=== PATIENT | male | born 1940 | race Caucasian/White ===

== ENCOUNTER → 2017-07-13 10:17 | Outpatient (CLI) | payer MEDICARE, SELFPAY ==
[2017-07-13 13:13] LABS: Basophils % 0.2 % (0.1-2.0); Eosinophils % 0.2 % (0.1-12.0); Hematocrit 26.4 % (42.0-52.0); Lymphocytes # 0.9 K/mm3 (0.7-4.5); Lymphocytes % 9.1 K/mm3 (10-50); Mean Corpuscular HGB Conc 24.7 g/dL (31.8-35.4); Mean Corpuscular Hemoglobin 16.6 pg (27.0-31.2); Mean Corpuscular Volume 67.2 fl (80-94); Mean Platelet Volume 6.9 fl (7.4-10.4); Monocytes # 0.5 K/mm3 (0.1-1.0); Monocytes % 4.7 % (1.7-9.3); Neutrophils # 8.8 K/mm3 (1.8-7.8); Neutrophils % 85.8 % (37.0-80.0); Platelet Count 712 K/mm3 (142-424); Red Blood Count 3.93 M/mm3 (4.60-6.20); Red Cell Distribution Width 21.1 % (11.5-17.5); White Blood Count 10.3 K/mm3 (4.8-10.8)
[2017-07-13 13:15] LABS: Hemoglobin 6.5 g/dL (14.1-18.0)
[2017-07-13 13:16] LABS: MANUAL DIFFERENTIAL MANUAL DIFFERENTIAL (MANUAL DIFF)
[2017-07-13 13:20] LABS: Alanine Aminotransferase 20 U/L (12-78); Albumin Level 1.8 gm/dL (3.4-5.0); Albumin/Globulin Ratio 0.5 (1.1-1.8); Alkaline Phosphatase 143 U/L (46-116); Anion Gap 12.8 mEq/L (5-15); Aspartate Amino Transferase 22 U/L (15-37); Bilirubin,Total 0.2 mg/dL (0.2-1.0); Blood Urea Nitrogen 8 mg/dL (7-18); Calcium 7.4 mg/dL (8.5-10.1); Carbon Dioxide 26 mmol/L (21.0-32.0); Chloride 99 mmol/L (98-107); Creatinine,Serum 0.58 mg/dL (0.70-1.30); Estimated Glomerular Filt Rate 135 ml/min (>60); GFR (African American) 164 ML/MIN (>60); Glucose 124 mg/dL (74-106); Potassium 3.8 mmoL/L (3.5-5.1); Sodium 134 mmol/L (136-145); Total Protein,Serum 5.8 gm/dL (6.4-8.2)
[2017-07-13 15:02] LABS: Lymphocytes % 12 % (10-50); Monocytes % 4 % (2-9); Neutrophils % 83 % (42-76); Total Cells Counted 100
[2017-07-13 15:03] LABS: Platelet Estimate Marked Increase; Tear Drop Cells 1+
[2017-07-13 15:04] LABS: Hypochromasia 3+; Microcytosis 2+; Schistocytes 1+
== END ==
PROVIDERS: PCP Nurse Practitioner Family; Visit Provider Nurse Practitioner Family
DX: D64.9 Anemia, unspecified (principal)
CPT/HCPCS: 36415; 80053; 85007; 85025

== ENCOUNTER 2017-07-14 08:00 | Outpatient (CLI) | payer MEDICARE, SELFPAY ==
[2017-07-14] VITALS (21 sets, daily range): BP systolic 111–154; BP diastolic 52–78; PULSE 68–91; RESP 18–20; TEMP 36.6–37.2; O2SAT 96–98; BMI 18.6
[2017-07-14 11:36] LABS: Ferritin 3 ng/mL (8-388)
--- NOTE | 2017-07-14 12:06 | XR_ITS ---
XR chest 2V HISTORY: ITS.REASON: COUGH; SOB ORDERING PHYSICIAN: Juana Mcconnell PATIENT AGE: 77 years COMPARISON: None available FINDINGS: The cardiomediastinal silhouette and pulmonary vascularity are within normal limits. There is hyperinflation with prominent anterior clear space suggesting COPD. No lobar consolidation or collapse. No acute bony anomalies. IMPRESSION: COPD, no acute finding
[2017-07-14 16:20] LABS: Hematocrit 34.4 % (42.0-52.0); Hemoglobin 9.3 g/dL (14.1-18.0)
[2017-07-15 08:40] LABS: Iron 11 ug/dL (38-169); Iron Saturation 4 % (15-55); UIBC 280 ug/dL (111-343)
[2017-07-16 09:29] LABS: Vitamin B12 464 pg/mL (232-1245)
== END 2017-07-14 16:30 | disposition hospice, home (50) ==
LOC: INF 11:15
PROVIDERS: PCP Nurse Practitioner Family; Visit Provider Nurse Practitioner Family
DX: D64.9 Anemia, unspecified (principal)
CPT/HCPCS: 36430; 71046; 82607; 82728; 83550; 85014; 85018; 86850; P9016

== ENCOUNTER → 2017-07-23 07:15 | Outpatient (CLI) | payer MEDICARE, SELFPAY ==
[2017-07-14 08:30] VITALS: BMI 18.6
--- NOTE | 2017-07-23 07:32 | CA_ITS ---
PROCEDURE: 2-D M-mode and color Doppler study INDICATIONS FOR THE TEST: Chest pain + COPD Heart Murmur Tobacco Smoking+ Palpitations Fatigue Syncope Edema+ Hypertension+Diabetes Mellitus Rheumatic Fever SOB WONG Obesity Hyperlipidemia Family History HD Additional History PATIENT INFORMATION HEIGHT: WEIGHT: GENDER: Male B/P: 2-D/M-MODE INTERPRETATION: 2-D MEASUREMENTS OBSERVED VALUES IN CMS Right Ventricular Dimension (RVDd) 1.5 Interventricular Septum (Thickness)(IVsd) 0.7 Left Ventricular Internal Dimensions(LVIDd) 4.7 Left Ventricular Posterior Wall (Thickness)(LVPWd) 1.0 Aortic Root 3.2 Aortic Cusp Separation 1.7 Left Atrial Dimensions (LAD) 2.3 2D 1. Left atrium is mildly enlarged, left ventricle is normal size, there is no concentric left ventricular hypertrophy, visually estimated ejection fraction 55% with no obvious regional wall motion abnormality. 2. The right atrium and right ventricle are relatively normal size and function. 3. The aortic valve is thickened and calcified leaflet continue to display mobility. 4.The mitral and tricuspid valve leaflets are minimally thickened. 5. The pulmonic valve is poorly visualized 6. No significant pericardial effusion noted. DOPPLER INTERROGATION: Doppler interrogation of the aortic, mitral and tricuspid valvular presence of mild aortic, mild mitral and tricuspid regurgitation, calculated right ventricular systolic pressure is 45 mmHg consistent with moderate pulmonary hypertension, grade 1 diastolic dysfunction seen without tissue Doppler evidence of raised left atrial pressure. CONCLUSION: 1. Mildly enlarged left atrium, normal left ventricular size, visually estimated ejection fraction 55% with no obvious regional wall motion abnormality, grade 1 diastolic dysfunction seen without tissue Doppler evidence of raised left atrial pressure. 2. Thickened and calcified aortic valve without aortic stenosis, there is mild aortic insufficiency. 3. Mild mitral and tricuspid regurgitation 4. No significant pericardial effusion noted.
--- NOTE | 2017-07-23 08:48 | CT_ITS ---
CT chest w con HISTORY: Weight loss, chest pain, shortness of breath on exertion ITS.REASON: WGT LOSS, SOB, PERIPHERAL EDEMA,ABD PAIN ORDERING PHYSICIAN: Juana Mcconnell PATIENT AGE: 77 years TECHNIQUE: Axial images obtained following the administration of 75 mL of Isovue 370 . Sagittal, and coronal reformatted images are also generated and reviewed. All CT scans at the facility use one or more dose reduction, viz: automated exposure control; ma/kV adjustment per patient size (including targeted exams where dose is matched to indication; i.e. head); or iterative reconstruction technique. COMPARISON: None FINDINGS: No mediastinal or hilar mass or adenopathy. Normal heart size. No evidence of pericardial effusion. No evidence of aortic aneurysm or central pulmonary embolus. There are coronary artery calcifications. There are severe centrilobular emphysematous changes with biapical fibrosis and bullous changes in the apices. No central obstructing lesion. No lobar consolidation or collapse. There is a calcified granuloma in the left lower lobe. There are no suspicious pulmonary nodules identified. 3 mm nodules present in the superior segment of the right lower lobe nonspecific. No effusions or infiltrates. No acute bony anomalies. There are mild atelectatic changes in the lung bases posteriorly IMPRESSION: Centrilobular emphysema scattered fibrotic changes and fullness changes in the lung apices. No suspicious pulmonary nodules
--- NOTE | 2017-07-23 08:48 | CT_ITS ---
CT abdomen pelvis w con CLINICAL INDICATION: Weight loss, pain, peripheral edema ORDERING PHYSICIAN: Juana Mcconnell PATIENT AGE: 77 years COMPARISON: None TECHNIQUE: Axial images obtained with sagittal and coronal reformats. All CT scans at the facility use one or more dose reduction, viz: automated exposure control; ma/kV adjustment per patient size (including targeted exams where dose is matched to indication; i.e. head); or iterative reconstruction technique. PROCEDURE: Oral Contrast: Redicat IV Contrast: 75 mL of Isovue-370 performed in conjunction with the chest CT. FINDINGS: Images were filmed very thin sections at 1.25 mm. Will ask for of the study to be refilmed at the appropriate thickness and addendum will be given if any new findings are apparent. There is a 6 mm isodensity left hepatic lobe nonspecific and could be due to small cyst too small to categorize. The spleen, right adrenal gland, and pancreas has an unremarkable appearance. There is thickening of the fundus and body of the stomach having a somewhat irregular appearance suspicious for gastric mass. Suggest upper endoscopy. There is some minimal stranding of the fat posterior to the stomach. Unfortunately, oral contrast was not with and the stomach to better delineate the gastric outline. There is nodularity along the posterior wall of the stomach. The posterior wall the stomach blends in imperceptibly with the anterior aspect of the spleen. An isodense area is noted along the anterior medial aspect of the spleen which could be related to local invasion of the mass. Isodensity also noted within the central aspect of the spleen medially. The left adrenal gland is slightly enlarged but maintains an adreniform shape measuring 2.1 x 2.1 cm. Cannot exclude neoplastic process. There are multiple bilateral renal cysts. No hydronephrosis. No abdominal or retroperitoneal adenopathy. No intestinal obstruction or free air. There is diffuse diverticulosis of the sigmoid colon. No evidence of diverticulitis. No evidence of appendicitis is mild thickening of the splenic flexure and transverse colon but could be due to nondistention. IMPRESSION: There is a heterogeneous mass involving the fundus and upper portion of the stomach with apparent local invasion into the hilum of the spleen and posterior aspect of the spleen consistent with neoplasm. Upper endoscopy suggested for confirmation. Would also consider re-imaging the upper abdomen with better oral contrast opacification at no additional charge. Slightly enlarged left adrenal gland nonspecific. Other nonacute findings as described above
== END ==
PROVIDERS: PCP Nurse Practitioner Family; Visit Provider Nurse Practitioner Family
DX: R63.4 Abnormal weight loss; R60.9 Edema, unspecified; R06.02 Shortness of breath; K92.1 Melena
CPT/HCPCS: 71260; 74177; 93306; Q9967

== ENCOUNTER → 2017-07-27 07:40 | Outpatient (CLI) | payer MEDICARE, SELFPAY ==
[2017-07-27 13:53] LABS: Alanine Aminotransferase 20 U/L (12-78); Albumin Level 2.1 gm/dL (3.4-5.0); Albumin/Globulin Ratio 0.5 (1.1-1.8); Alkaline Phosphatase 124 U/L (46-116); Anion Gap 10.2 mEq/L (5-15); Aspartate Amino Transferase 30 U/L (15-37); Bilirubin,Total 0.2 mg/dL (0.2-1.0); Blood Urea Nitrogen 6 mg/dL (7-18); Carbon Dioxide 32 mmol/L (21.0-32.0); Chloride 95 mmol/L (98-107); Creatinine,Serum 0.54 mg/dL (0.70-1.30); Estimated Glomerular Filt Rate 147 ml/min (>60); GFR (African American) 178 ML/MIN (>60); Glucose 101 mg/dL (74-106); Potassium 3.2 mmoL/L (3.5-5.1); Sodium 134 mmol/L (136-145); Total Protein,Serum 6.1 gm/dL (6.4-8.2)
[2017-07-27 14:18] LABS: Basophils # 0.1 K/mm3 (0-0.2); Basophils % 0.5 % (0.1-2.0); Eosinophils # 0.2 K/mm3 (0.0-0.4); Eosinophils % 1.8 % (0.1-12.0); Hemoglobin 8.5 g/dL (14.1-18.0); Lymphocytes # 1.8 K/mm3 (0.7-4.5); Lymphocytes % 19.1 K/mm3 (10-50); Mean Corpuscular HGB Conc 27.4 g/dL (31.8-35.4); Mean Corpuscular Hemoglobin 19.8 pg (27.0-31.2); Mean Corpuscular Volume 72.3 fl (80-94); Mean Platelet Volume 7.6 fl (7.4-10.4); Monocytes # 0.5 K/mm3 (0.1-1.0); Monocytes % 5.1 % (1.7-9.3); Neutrophils # 6.8 K/mm3 (1.8-7.8); Neutrophils % 73.5 % (37.0-80.0); Platelet Count 488 K/mm3 (142-424); Red Blood Count 4.29 M/mm3 (4.60-6.20); Red Cell Distribution Width 24.2 % (11.5-17.5); White Blood Count 9.2 K/mm3 (4.8-10.8)
== END ==
PROVIDERS: Visit Provider Nurse Practitioner Family
DX: D50.9 Iron deficiency anemia, unspecified (principal); R06.02 Shortness of breath; R63.4 Abnormal weight loss; Z68.1 Body mass index [BMI] 19.9 or less, adult; R60.9 Edema, unspecified
CPT/HCPCS: 36415; 80053; 85025

== ENCOUNTER 2017-12-23 19:01 | Inpatient (IN) ==
--- NOTE | 2017-12-23 19:13 | Emergency Department Note ---
ED Disposition Condition on Discharge: Good - Critical Care Critical Care Time: No <Kel Butcher - Last Filed: 12/23/17 19:52> Condition on Discharge: Critical - Critical Care Critical Care Time: Yes Vital system(s) involved:: Metabolic Failure My critical care processes included: Assessment & monitoring of V/S, Initial and Re-exams, Data Review/Interpretation, Medication Orders and management, Documentation <Nitin Gomez - Last Filed: 12/23/17 20:34> Clinical Impression: Severe sepsis, Hyponatremia Anemia Qualifiers: Anemia type: unspecified type Qualified Code(s): D64.9 - Anemia, unspecified CAP (community acquired pneumonia) Qualifiers: Laterality: left Lung location: lower lobe of lung Qualified Code(s): J18.1 - Lobar pneumonia, unspecified organism Hypothermia Qualifiers: Encounter type: initial encounter Qualified Code(s): T68.XXXA - Hypothermia, initial encounter Disposition: Admitted As Inpatient Instructions: DI for Altered Mental Status Referrals: Juana Mcconnell APRN [Primary Care Provider] - Attestation: On 12/23/17, the high probability of a clinically significant, sudden or life threatening deterioration of the following system(s) required my full and direct attention, intervention and personal management. The time I documented below is in addition to time spent performing reported procedures but includes the following listed in this critical care notation. Medical Decision Making - Medical Records Medical records reviewed: Yes: I reviewed the patient's medical records. - Sen Inquiry Pt receiving controlled substance: No - Lab Data Result diagrams: 12/23/17 19:30 <Kel Butcher - Last Filed: 12/23/17 19:52> - Lab Data Lab results reviewed: Yes: I reviewed the patient's lab results. Result diagrams: 12/23/17 19:30 12/23/17 19:30 - Radiology Data #1 Image(s): Chest Image Reviewed: Yes I reviewed the patient's radiology image Preliminary Findings: Abnormal (lt lower pneumonia) - CT Data CT Scan: Head Time Received: 20:[address] Reviewed: Yes: I have viewed the radiologist's interpretation Preliminary Findings: Abnormal (chronic) - ECG Data Tracing #1 Arrhythmias present: sinus tach Ischemic changes: non-specific ST-T wave changes - Physician Consults Physician Consulted: eduar Reason -: Admission <Nitin Gomez - Last Filed: 12/23/17 20:34> Vital Signs: 12/23/17 19:01 12/23/17 19:20 12/23/17 19:54 Temperature 95.8 F L Temperature Source Rectal Pulse Rate 97 H Pulse Rate [Left Radial] 104 H 109 H Respiratory Rate 20 22 Blood Pressure [Right Arm] 137/74 137/74 Blood Pressure Mean [Right Arm] 95 95 Blood Pressure Source [Right Arm] Automatic Cuff Automatic Cuff Blood Pressure Position [Right Arm] Sitting Sitting 02 Sat by Pulse Oximetry 96 88 L Oxygen Delivery Method Non-Rebreather Room Air - Lab Data Lab Results 12/23/17 19:14: POC Glucose 64 L 12/23/17 19:23: Specimen Source Rt radial, O2 % 34, ABG pH 7.39, ABG pCO2 29.9 L , ABG pO2 157.6 H, ABG HCO3 17.7 L, ABG Total CO2 18.7 L, ABG O2 Saturation 99, ABG Base Excess -7.2 L, [place] Test Acceptable 12/23/17 19:30: WBC 11.9 H, RBC 3.48 L, Hgb 6.3 L*, Hct 23.7 L*, MCV 68.2 L, MCH 18.3 L, MCHC 26.8 L, RDW 18.0 H, Plt Count 135 L, MPV 8.0, Neut % (Auto) 93.2 H, Lymph % (Auto) 3.4 L, [place] % (Auto) 3.3, Eos % (Auto) 0.1, Baso % (Auto) 0.1, Neut # (Auto) 11.1 H, Lymph # (Auto) 0.4 L, [place] # (Auto) 0.4, Eos # (Auto) 0.0, Baso # (Auto) 0.0 12/23/17 19:30: Sodium 130 L, Potassium 3.3 L, Chloride 95 L, Carbon Dioxide 17 L, Anion Gap 21.3 H, BUN 15, Creatinine 0.94, Estimated Creat Clear 58, Estimated GFR 77, Est GFR ( Amer) 94, Glucose 186 H, Calcium 7.0 L, Total Bilirubin 0.6, AST 70 H, ALT 27, Alkaline Phosphatase 177 H, Troponin I 0.03, Total Protein 4.7 L, Albumin 1.4 L, Globulin 3.3 H, Albumin/Globulin Ratio 0.4 L , Plasma/Serum Alcohol < 3 12/23/17 19:30: Lactate 7.5 H 12/23/17 19:30: B-Natriuretic Peptide 95 Orders (Tests/Meds): ED MEDICATIONS Generic Name Dose Route Start Last Admin Trade Name Freq PRN Reason Stop Dose Admin Sodium Chloride 2,040 mls @ 1,020 mls/hr 12/23/17 20:16 12/23/17 20:19 Sod Chlor 0.9% 1000ml Bag 30 ml/kg infuse over 2 hr (2040 ml) 12/23/17 22:15 1,020 mls/hr IV Administration .Q2H ONE Discontinued Medications Generic Name Dose Route Start Last Admin Trade Name Freq PRN Reason Stop Dose Admin Albuterol/Ipratropium 3 ml 12/23/17 19:08 12/23/17 19:49 Duoneb 3ml Neb IH 12/23/17 19:09 3 ml ONCE ONE Administration Sodium Chloride 500 mls @ 999 mls/hr 12/23/17 19:15 12/23/17 19:36 Sod Chlor 0.9% 1000ml Bag IV 12/23/17 19:45 999 mls/hr .Q31M JACOB Administration ORDERS Category Date Time Status CT head/brain wo con Stat Cat Scan 12/23/17 19:07 Taken CPK [Creatine Kinase] Stat Lab 12/23/17 19:30 Received Complete Blood Count Auto Diff Stat Lab 12/23/17 19:30 Results Occult Blood,Stool Stat Lab 12/23/17 20:02 Ordered Urinalysis and Microscopic Stat Lab 12/23/17 20:23 Ordered ECG Request by /Nse Stat Y 12/23/17 19:07 Ordered Syncope HPI - General Source of Information: Patient, EMS <Kel Butcher - Last Filed: 12/23/17 19:52> - General Limitations: No Limitations - History of Present Illness MD complaint: felt faint Onset (ago): hour(s) Treatments prior to arrival: IV fluids <Nitin Gomez - Last Filed: 12/23/17 20:34> - General Stated Complaint: AMS Time Seen by Provider: 12/23/17 19:10 - History of Present Illness HPI narrative: pt felt weak while sitting, then became unresponsive, SP 70, blood sugar 51, treated by ems w/ D50 and 250cc NS, is now awake, denies any pain, has confused conversation, not on home O2, poor historian (Kel Butcher) pt felt weak while sitting, then became unresponsive, SP 70, blood sugar 51, treated by ems w/ D50 and 250cc NS, is now awake, denies any pain, has confused conversation, not on home O2, poor historian (Nitin Gomez) - Related Data Home Medications Medication Instructions Recorded Confirmed cardioplegic soln no.20(maint 4:1) 1 ml PERFUSION DAILY 07/29/17 20 mEq/810 mL (potassium) perfusion furosemide 20 mg tablet 20 mg PO ONCE 07/29/17 07/30/17 pantoprazole 40 mg tablet,delayed 40 mg PO QAM 07/29/17 07/30/17 release Allergies Allergy/AdvReac Type Severity Reaction Status Date / Time No Known Allergies Allergy Verified 08/05/17 11:36 [facility] History I have reviewed the patient's past medical history: Yes Medical History: Reports:: Chronic Obstructive Pulmonary Disease (COPD), Gastroesophageal Reflux Disease(GERD) Denies:: Diabetes Mellitus Type 1, Diabetes Mellitus Type 2, Internal Pacemaker, Lung Disease, Seizures Comment: Gastric mass, Edema, occasional tobacco use (cigars) Other Surgeries: Yes: EGD. No: Pacemaker - Social History Smoking Status: Never smoker Tobacco Type: smokeless tobacco Alcohol Intake: never Substance Use Type: denies use Family Hx:: No significant family history <Kel Butcher - Last Filed: 12/23/17 19:52> ROS Obtained: Yes Systems reviewed as appropriate & no additional complaints - Constitutional Constitutional: Reports fatigue, Denies fever(s) - Eyes Eyes: Denies change in vision - ENT Ears, Nose, Mouth, and Throat: Reports poor balance - Cardiovascular Cardiovascular: Denies chest pain - Respiratory Respiratory: Yes dyspnea on exertion - Gastrointestinal Gastrointestingal: Denies: abdominal pain, vomiting - Musculoskeletal Musculoskeletal: Denies back pain, Denies neck pain - Integumentary/Breasts Skin/Breast: Denies new lesions - Neurologic Neurologic: Reports dizziness, Denies focal weakness <Kel Butcher - Last Filed: 12/23/17 19:52> Physical Exam - General General appearance: in no apparent distress - Head Head exam: atraumatic - Eye Eye exam: Present: PERRL, EOMI - ENT ENT exam: Present: normal oropharynx - Neck Neck exam: Present: full ROM - Chest Chest inspection: Present: normal inspection - Respiratory Respiratory exam: Present: normal lung sounds bilaterally. Absent: respiratory distress - Cardiovascular Cardiovascular exam: Present: regular rate, normal rhythm - Abdominal Exam Abdominal exam: Present: soft. Absent: tenderness - Extremities Exam Extremities exam: Absent: tenderness - Neurological Exam Neurological exam: Present: alert - Psychiatric Psychiatric exam: Present: normal affect - Skin Skin exam: Present: warm, dry <Kel Butcher - Last Filed: 12/23/17 19:52>
[2017-12-23 19:24] LABS: ABG Base Excess -7.2 mmol/L (-2.4-2.3); ABG HCO3 17.7 mmhg (22.0-26.0); ABG Oxygen Saturation 99 % (90-100); ABG PCO2 29.9 mmhg (35.0-45.0); ABG PH 7.39 mmol/L (7.35-7.45); ABG PO2 157.6 mmhg (80-100); ABG TCO2 18.7 mmhg (23-27)
[2017-12-23 19:26] LABS: Allen's Test Acceptable; Oxygen 34 %
[2017-12-23 19:44] LABS: Basophils % 0.1 % (0.1-2.0); Eosinophils % 0.1 % (0.1-12.0); Lymphocytes # 0.4 K/mm3 (0.7-4.5); Lymphocytes % 3.4 K/mm3 (10-50); Mean Corpuscular HGB Conc 26.8 g/dL (31.8-35.4); Mean Corpuscular Hemoglobin 18.3 pg (27.0-31.2); Mean Corpuscular Volume 68.2 fl (80-94); Monocytes # 0.4 K/mm3 (0.1-1.0); Monocytes % 3.3 % (1.7-9.3); Neutrophils # 11.1 K/mm3 (1.8-7.8); Neutrophils % 93.2 % (37.0-80.0); Platelet Count 135 K/mm3 (142-424); Red Blood Count 3.48 M/mm3 (4.60-6.20); White Blood Count 11.9 K/mm3 (4.8-10.8)
[2017-12-23 19:47] LABS: Hemoglobin 6.3 g/dL (14.1-18.0)
[2017-12-23 19:48] LABS: Hematocrit 23.7 % (42.0-52.0)
[2017-12-23 20:02] LABS: Alanine Aminotransferase 27 U/L (12-78); Albumin Level 1.4 gm/dL (3.4-5.0); Albumin/Globulin Ratio 0.4 (1.1-1.8); Alkaline Phosphatase 177 U/L (46-116); Anion Gap 21.3 mEq/L (5-15); Aspartate Amino Transferase 70 U/L (15-37); Bilirubin,Total 0.6 mg/dL (0.2-1.0); Blood Urea Nitrogen 15 mg/dL (7-18); Carbon Dioxide 17 mmol/L (21.0-32.0); Chloride 95 mmol/L (98-107); Ethyl Alcohol < 3 mg/dL (0-99); Globulin 3.3 gm/dl (1.3-3.2); Glucose 186 mg/dL (74-106); Potassium 3.3 mmoL/L (3.5-5.1); Sodium 130 mmol/L (136-145); Total Protein,Serum 4.7 gm/dL (6.4-8.2)
[2017-12-23 20:34] LABS: Appearance,Urine CLEAR (Clear); Bilirubin,Urine Negative (Negative); Blood, Urine TRACE-L (Negative); Color,Urine YELLOW (Yellow); Glucose,Urine (UA) TRACE (Negative); Ketones,Urine 1+ (Negative); Leukocyte Esterase,Urine Negative (Negative); Microscopic, Urine URINE MICROSCOPIC (MICROSCOPIC); PH,Urine 6.5 (5.0-8.5); Protein,Urine 1+ (Negative); Urobilinogen,Urine 0.2 EU/dl (0.2)
[2017-12-23 20:37] LABS: Lymphocytes % 5 % (10-50); Neutrophils % 95 % (42-76); Nucleated Red Blood Cells 3; Target Cells 2+; Total Cells Counted 100
[2017-12-23 20:38] LABS: Anisocytosis 2+
[2017-12-23 20:47] LABS: Bacteria,Urine 2+ /lpf; Coarse Granular Casts,Urine 20-50 #/lpf (0)
--- NOTE | 2017-12-23 20:58 | Sepsis Event Note ---
Tissue Perfusion Evaluation Sepsis Re-Evaluation Performed: Yes Date Performed: 12/23/17 Time Performed: 21:00 Sepsis Follow-Up: Yes: Respiratory exam, Cardiovascular exam, Capillary refill, Peripheral pulse strength, Peripheral pulse location, Skin exam, Vital Signs Most Recent Vital Signs: Temperature 96.1 F L 12/23/17 20:44 Temperature Source Rectal 12/23/17 20:44 Pulse Rate 92 H 12/23/17 20:44 Respiratory Rate 20 12/23/17 20:44 Blood Pressure 123/70 12/23/17 20:44 Blood Pressure Mean 87 12/23/17 20:44 Blood Pressure Source Automatic Cuff 12/23/17 20:44 Blood Pressure Position Supine 12/23/17 20:44 02 Sat by Pulse Oximetry 92 L 12/23/17 20:44 Oxygen Delivery Method 12/23/17 20:44 Oxygen Flow Rate (LPM) 2 12/23/17 20:44
[2017-12-24 07:45] LABS: Anion Gap 7.5 mEq/L (5-15); Calcium 7.1 mg/dL (8.5-10.1); Potassium 3.5 mmoL/L (3.5-5.1)
--- NOTE | 2017-12-24 07:47 | Pharmacy Consult Notes ---
[facility] Pharmacy VTE Monitoring - Patient Demographics Admission date: 12/23/17 Report Date: 12/24/17 Time: 07:46 Allergies/Adverse Reactions: Patient Allergies No Known Allergies Allergy (Verified 08/05/17 11:36) Height: 1.85 m Weight: 49.986 kg Patient Problems: Current Active Problems Anemia (Acute) Severe sepsis (Acute) CAP (community acquired pneumonia) (Acute) Hypothermia (Acute) Hyponatremia (Acute) - VTE Risk Labs: VTE Related Lab Results Hgb 6.3 g/dL (14.1-18.0) L* 12/23/17 19:30 Hct 23.7 % (42.0-52.0) L* 12/23/17 19:30 Plt Count 135 K/mm3 (142-424) L 12/23/17 19:30 BUN 15 mg/dL (7-18) 12/23/17 19:30 Creatinine 0.94 mg/dL (0.70-1.30) 12/23/17 19:30 Estimated Creat Clear 58 mL/min (0-300) 12/23/17 19:30 Was VTE Risk Assessment Performed: Yes VTE Score: 3 VTE Risk Level: Low Risk - Prophylaxis VTE Prophylaxis Ordered?: Yes Types of VTE Prophylaxis: TEDS Knee High Location of Applied Device: Bilateral Lower Extremeties - VTE Diagnosis Confirmed Treatment or plan recommended: Continue Current Treatment
--- NOTE | 2017-12-24 08:44 | History & Physical Report ---
Addendum entered and electronically signed by Juana Mcconnell APRN 12/24/17 09:27: Patient has COPD from prior tobacco use which complicates his pulmonary status. 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 EMS report SBP 70 and FSBS 51 on their arrival. He was treated with IVF's and dextrose in route. In the ED, he was found to be anemic with HGB 6.3. CXR showed LLL pneumonia, WBC 11.7. SBP was 115. Patient is confused which is not his baseline. Patient was seen by Dr. Montanez and Dr. Padron for gastric mass and refused treatment stating "the good Lord will take care of me." Patient admitted for IV antibiotics and further evaluation. [facility] History I have reviewed the patient's past medical history: Yes Medical History: Reports:: Cancer (adenocarcinoma of the stomach), Chronic Obstructive Pulmonary Disease (COPD), Gastroesophageal Reflux Disease(GERD) Denies:: Diabetes Mellitus Type 1, Diabetes Mellitus Type 2, Internal Pacemaker, Lung Disease, MRSA, Seizures Other Surgeries: Yes: No Previous Surgery, EGD. No: Pacemaker Amputation: No Fractures: No - *Social History Educational Level: Attended Grade School Smoking Status: Unknown if ever smoked Tobacco Type: smokeless tobacco Alcohol Intake: former Alcohol Intake Frequency:: 0-2 drinks per day Substance Use Type: denies use Occupational Status: other Housing: house Household Members: spouse, family - Psychiatric History Expresses thoughts of harming self/others: None Suicide Plan Description: No Plan *Family Hx:: Unable to obtain, No significant family history Review of Systems - Review of Systems Review of systems:: pertinent systems reviewed and negative unless documented below - Constitutional Reports malaise, Reports weakness, Reports weight loss - *Cardiovascular Reports leg swelling - *Respiratory Reports cough, Reports shortness of breath - *Gastrointestinal Reports black, tarry stools - *Neurologic Reports unsteadiness, Reports dizziness, Denies localized weakness Meds Home Medications Medication Instructions Recorded Confirmed Type Furosemide [Furosemide 20mg Tab] 20 mg PO DAILY 12/24/17 12/24/17 History Pantoprazole Sodium [Protonix 40mg 40 mg PO DAILY 12/24/17 12/24/17 History tablet] Potassium Chloride 20 meq PO BID 12/24/17 12/24/17 History Allergies Allergy/AdvReac Type Severity Reaction Status Date / Time No Known Allergies Allergy Verified 08/05/17 11:36 Exam Vital signs and Labs for Last 24 Hours: Temp Pulse Resp BP Pulse Ox 98.9 F 55 L 14 174/74 100 12/24/17 07:15 12/24/17 07:15 12/24/17 03:10 12/24/17 07:15 12/24/17 07:15 Laboratory Results - last 24 hr 12/23/17 19:14: POC Glucose 64 L 12/23/17 19:23: Specimen Source Rt radial, O2 % 34, ABG pH 7.39, ABG pCO2 29.9 L , ABG pO2 157.6 H, ABG HCO3 17.7 L, ABG Total CO2 18.7 L, ABG O2 Saturation 99, ABG Base Excess -7.2 L, [place] Test Acceptable 12/23/17 19:30: WBC 11.9 H, RBC 3.48 L, Hgb 6.3 L*, Hct 23.7 L*, MCV 68.2 L, MCH 18.3 L, MCHC 26.8 L, RDW 18.0 H, Plt Count 135 L, MPV 8.0, Neut % (Auto) 93.2 H, Lymph % (Auto) 3.4 L, [place] % (Auto) 3.3, Eos % (Auto) 0.1, Baso % (Auto) 0.1, Neut # (Auto) 11.1 H, Lymph # (Auto) 0.4 L, [place] # (Auto) 0.4, Eos # (Auto) 0.0, Baso # (Auto) 0.0, Total Counted 100, Neutrophils % (Manual) 95 H, Lymphocytes % (Manual) 5 L, Nucleated RBCs 3, Platelet Estimate Slight decrease, Poikilocytosis 1+, Anisocytosis 2+, Microcytosis 2+, Target Cells 2+, Schistocytes 1+ 12/23/17 19:30: Sodium 130 L, Potassium 3.3 L, Chloride 95 L, Carbon Dioxide 17 L, Anion Gap 21.3 H, BUN 15, Creatinine 0.94, Estimated Creat Clear 58, Estimated GFR 77, Est GFR ( Amer) 94, Glucose 186 H, Calcium 7.0 L, Total Bilirubin 0.6, AST 70 H, ALT 27, Alkaline Phosphatase 177 H, Troponin I 0.03, Total Protein 4.7 L, Albumin 1.4 L, Globulin 3.3 H, Albumin/Globulin Ratio 0.4 L , Plasma/Serum Alcohol < 3 12/23/17 19:30: Lactate 7.5 H 12/23/17 19:30: B-Natriuretic Peptide 95 12/23/17 19:30: Total Creatine Kinase 106 12/23/17 20:02: Stool Occult Blood Positive A 12/23/17 20:23: Urine Color Yellow, Urine Appearance Clear, Urine pH 6.5, Ur Specific [place] 1.020, Urine Protein 1+, Urine Glucose (UA) Trace, Urine Ketones 1+, Urine Blood Trace-l, Urine Nitrate Negative, Urine Bilirubin Negative, Urine Urobilinogen 0.2, Ur Leukocyte Esterase Negative, Urine RBC 10- 20, Urine WBC 5-10, Ur Squamous Epith Cells 3-5, Ur Transition Epith Cell 3-5, Urine Bacteria 2+, Hyaline Casts 5-10, Coarse Granular Casts 20-50 12/23/17 20:30: Blood Type O Positive, Antibody Screen Negative, Crossmatch (AHG) See Detail 12/23/17 20:38: POC Glucose 141 H 12/23/17 23:55: Troponin I 0.10 H 12/23/17 23:55: Lactate 3.4 H 12/24/17 02:10: Troponin I 0.10 H 12/24/17 02:10: Lactate 2.5 H 12/24/17 07:25: Sodium 132 L, Potassium 3.5, Chloride 99, Carbon Dioxide 29 D, Anion Gap 7.5, BUN 14, Creatinine 0.74 D, Estimated Creat Clear 42, Estimated GFR 102, Est GFR ( Amer) 123 D, Glucose 103 D, Calcium 7.1 L, Magnesium 1.6 I & O for Last 24 hours: Intake & Output 12/21/17 12/22/17 12/23/17 12/24/17 11:59 11:59 11:59 11:59 Intake Total 1434 / 1434 Output Total 1200 / 1200 Balance 234 / 234 Weight 110 lb 3.2 oz Narrative: Alert and oriented to self. Frail, elderly, cachectic. MO equally. Rate and rhythm regular, 2/3 holosystolic murmur. 1+ BLE edema. Multiple bruises and superficial ulcers over spine. Bilateral IV site infiltrated, nursing notified. ENT exam unremarkable. Abdomen, sunken, nontender Assessment and Plan (1) Adenocarcinoma Current visit: Yes Status: Chronic Category: Medical Code(s): C80.1 - Malignant (primary) neoplasm, unspecified (2) Gastric mass Current visit: Yes Status: Chronic Category: Medical Code(s): K31.9 - Disease of stomach and duodenum, unspecified (3) Occult blood positive stool Current visit: Yes Status: Chronic Category: Medical Code(s): R19.5 - Other fecal abnormalities (4) Left lower lobe pulmonary infiltrate Current visit: Yes Status: Acute Category: Medical Code(s): R91.8 - Other nonspecific abnormal finding of lung field (5) BMI less than 19,adult Current visit: Yes Status: Chronic Category: Medical Code(s): Z68.1 - Body mass index (BMI) 19.9 or less, adult (6) Iron deficiency anemia due to chronic blood loss Current visit: Yes Status: Chronic Category: Medical Code(s): D50.0 - Iron deficiency anemia secondary to blood loss (chronic) (7) CAP (community acquired pneumonia) Current visit: Yes Status: Acute Qualifiers: Laterality: left Lung location: lower lobe of lung Qualified Code(s): J18.1 - Lobar pneumonia, unspecified organism Category: Medical Code(s): J18.9 - Pneumonia, unspecified organism - Assessment and plan all Dx Assessment and Plan for all problems:: Patient has very poor prognosis. BMI 14.6, with invasive gastric cancer. Continue antibiotics for CAP pneumonia. Consult hospice for palliative care.
[2017-12-24 10:53] LABS: Basophils % 0.2 % (0.1-2.0); Eosinophils % 0.3 % (0.1-12.0); Lymphocytes # 0.7 K/mm3 (0.7-4.5); Lymphocytes % 5.2 K/mm3 (10-50); Mean Corpuscular HGB Conc 31.3 g/dL (31.8-35.4); Mean Corpuscular Hemoglobin 24.6 pg (27.0-31.2); Mean Corpuscular Volume 78.5 fl (80-94); Mean Platelet Volume 9.8 fl (7.4-10.4); Monocytes # 0.8 K/mm3 (0.1-1.0); Monocytes % 5.8 % (1.7-9.3); Neutrophils # 11.8 K/mm3 (1.8-7.8); Neutrophils % 88.6 % (37.0-80.0); Platelet Count 100 K/mm3 (142-424); Red Blood Count 5.58 M/mm3 (4.60-6.20); Red Cell Distribution Width 19.8 % (11.5-17.5); White Blood Count 13.4 K/mm3 (4.8-10.8)
[2017-12-24 10:59] LABS: Hematocrit 43.8 % (42.0-52.0)
[2017-12-24 12:49] LABS: Lymphocytes % 4 % (10-50); Monocytes % 5 % (2-9); Neutrophils % 91 % (42-76); Nucleated Red Blood Cells 1; Total Cells Counted 100
[2017-12-24 12:50] LABS: Hypochromasia 2+
[2017-12-24 12:51] LABS: Target Cells 1+
[2017-12-24 12:55] LABS: Hemoglobin 13.7 g/dL (14.1-18.0)
--- NOTE | 2017-12-25 07:43 | Discharge Summary ---
General - General Admission date:: 12/23/17 Discharge date: 12/25/17 HPI HPI: 77 year old male who was diagnosed with adenocarcinoma of the stomach in June of this year and elected not to treat was transported via EMS to the ED for evaluation following a syncopal episode. EMS report SBP 70 and FSBS 51 on their arrival. He was treated with IVF's and dextrose in route. In the ED, he was found to be anemic with HGB 6.3. CXR showed LLL pneumonia, WBC 11.7. SBP was 115. Patient is confused which is not his baseline. Patient was seen by Dr. Montanez and Dr. Padron for gastric mass and refused treatment stating "the good Lord will take care of me." Patient admitted for IV antibiotics and further evaluation. Hospital Course Hospital Course: Patient was admitted, given transfusion with packed red blood cells which increased his hemoglobin from 6 to 13. He feels no pain this morning but feels somewhat weak. Past history reviewed, patient with gastric neoplasm, probable adenocarcinoma, has declined therapy, has declined surgical intervention or further diagnostic testing. Maintains DNR status. Patient lives in a fairly abysmal living situation with his and [id number] who are in fairly dire straits themselves intellectually and nutritionally. He will be unable to return home even with aggressive home care with hospice given the lack of family support. Plan will be to transfer [facility] the [facility] with hosp[facility] care, this will be a terminal/palliative admission. APS has been contacted about the situation with his and [id number] at home given their intellectual limitations and poor self-care activities. Overall prognosis poor. Please note he will maintain a DNR status. He will be sent on antibiotics orally because of his admission ammonia. Objective Vital signs: Temp Pulse Resp BP Pulse Ox 98.5 F 70 14 134/61 100 12/25/17 04:00 12/25/17 04:00 12/25/17 04:00 12/25/17 04:00 12/25/17 04:00 Narrative: Patient is frail and cachectic. Oriented 2. Poor oral hygiene, otherwise moist mucosa. No JVD. Lungs have rhonchi, heart rate regular, abdomen is tender, doughy abdominal consistent. No discrete masses. Extremities have poor skin turgor, multiple scratches and skin trauma evident. Patient is diffusely weak. Able to move all extremities well. No cranial nerve deficits. Results Labs on day of discharge: Labs from last 24 hours 12/24/17 12/24/17 12/23/17 10:25 07:25 20:30 WBC 13.4 H RBC 5.58 D Hgb 13.7 L D Hct 43.8 MCV 78.5 L MCH 24.6 L D MCHC 31.3 L RDW 19.8 H Plt Count 100 L D MPV 9.8 Neut % (Auto) 88.6 H Lymph % (Auto) 5.2 L [place] % (Auto) 5.8 Eos % (Auto) 0.3 Baso % (Auto) 0.2 Neut # (Auto) 11.8 H Lymph # (Auto) 0.7 [place] # (Auto) 0.8 Eos # (Auto) 0.0 Baso # (Auto) 0.0 Total Counted 100 Neutrophils % (Manual) 91 H Lymphocytes % (Manual) 4 L Monocytes % (Manual) 5 Nucleated RBCs 1 Platelet Estimate Marked decrease Hypochromasia 2+ Poikilocytosis 1+ Microcytosis 1+ Target Cells 1+ Schistocytes 1+ Sodium 132 L Potassium 3.5 Chloride 99 Carbon Dioxide 29 D Anion Gap 7.5 BUN 14 Creatinine 0.74 D Estimated Creat Clear 42 Estimated GFR 102 Est GFR ( Amer) 123 D Glucose 103 D Calcium 7.1 L Magnesium 1.6 Blood Type O Positive Antibody Screen Negative Crossmatch ([facility]) See Detail Preliminary micro results at discharge 12/23/17 20:23 Urine Culture - Preliminary Urine,Clean Catch NO GROWTH AFTER 24 HOURS DS: Diagnosis - Discharge Diagnosis (1) Adenocarcinoma Status: Chronic Problem details: Patient wishes no treatment. We will continue palliative care. (2) Gastric mass Status: Chronic (3) Occult blood positive stool Status: Chronic (4) Left lower lobe pulmonary infiltrate Status: Acute Problem details: Antibiotics at intermediate (5) BMI less than 19,adult Status: Chronic (6) Iron deficiency anemia due to chronic blood loss Status: Chronic (7) CAP (community acquired pneumonia) Status: Acute Discharge Plan - Patient Discharge Instructions ACTIVITY: Limited activity, Up with assistance DIET: continue same diet - Follow up Plan Follow up with: Juana Mcconnell APRN [Primary Care Provider] - 12/29/17 Unknown provider or service follow up:: 12/25/17 07:43 Hospice services at intermediate Disposition: Hospice - Medical Facility Home Medications: Home Medications Medication Instructions Recorded Confirmed Type Furosemide [Furosemide 20mg Tab] 20 mg PO DAILY 12/24/17 12/24/17 History Pantoprazole Sodium [Protonix 40mg 40 mg PO DAILY 12/24/17 12/24/17 History tablet] Potassium Chloride 20 meq PO BID 12/24/17 12/24/17 History Prescriptions/Medication Reconciliation: New levoFLOXacin [Levaquin 500mg tab] 500 mg PO DAILY #7 tab Acetaminophen [Tylenol] 650 mg PO Q6HP PRN #60 capsule PRN Reason: Mild Pain Continue Furosemide [Furosemide 20mg Tab] 20 mg PO DAILY Potassium Chloride 20 meq PO BID Pantoprazole Sodium [Protonix 40mg tablet] 40 mg PO DAILY
== END 2017-12-25 12:49 | disposition hospice, inpatient (51) ==
LOC: ER 19:01 → 2ND 20:51
PROVIDERS: ADMIT Emergency Medicine; ATTEND Internal Medicine Adolescent Medicine